=== PATIENT | male | born 1985 | race Caucasian/White ===

== ENCOUNTER 2023-01-11 19:30 | Emergency (ER) | payer SELFPAY ==
[~2023-01-11] VITALS: Ht 177.8 cm; Wt 84.0 kg
[2023-01-11 19:50] VITALS: BP 150/79
[2023-01-11] MEDS ORDERED: NO HOME MEDS (19:50)
== END 2023-01-11 20:05 | disposition home or self-care (01) ==
LOC: ER 19:31
CPT/HCPCS: 99283